=== PATIENT | female | born 1960 | race Caucasian/White ===

== ENCOUNTER 2021-09-01 13:22 | Emergency (ER) | payer OTHER ==
[2021-09-01 14:12] VITALS: BP 164/84; PULSE 72; TEMP 97.8; BMI 21.4
== END 2021-09-01 15:17 | disposition home or self-care (01) ==
LOC: FER 13:22
DX: R51.9 Headache, unspecified (principal); W19.XXXA Unspecified fall, initial encounter
CPT/HCPCS: 70450-TC; 72125-TC; 73070-TC-RT-FY; 99284-25

== ENCOUNTER 2024-05-17 15:22 | Emergency (ER) | payer OTHER ==
[2024-05-17 15:56] VITALS: RESP 16; TEMP 98.6; BMI 22.4
[2024-05-17 16:24] LABS: ALBUMIN 4.8 g/dl (3.4-5.0); BILIRUBIN,TOTAL 0.5 mg/dl (0.2-1); CALCIUM 9.9 mg/dl (8.5-10.1); CREATININE 0.8 mg/dl (0.6-1.3); TOT PROT 7.4 g/dl (6.4-8.2)
[2024-05-17 16:29] LABS: HEMATOCRIT 42.8 % (32.4-45.2); HEMOGLOBIN 14.1 G/dL (10.7-15.3); MCH 31.6 pg (25.7-33.7); MCHC 32.9 g/dl (32.0-36.0); MEAN CELL VOLUME 96.2 fl (80-96); PLATELET COUNT 274.8 10^3/uL (134-434); RBC 4.45 10^6/uL (3.60-5.2); WHITE BLOOD COUNT 7.3 10^3/uL (4.0-10.8)
[2024-05-17] MEDS: AMPICILLIN NA/SULBACTAM NA 1.5 GM in SODIUM CHLORIDE 100 ML IVPB ONE ×2 (16:30→17:15)
[2024-05-17] MEDS ORDERED: AMPICILLIN NA/SULBACTAM NA 1.5 GM VIAL ONE ×2 (16:33→17:08)
[2024-05-17 16:51] LABS: PLATELET ESTIMATE ADEQUATE
[2024-05-17 17:17] LABS: ERYTHROCYTE SEDIMENTATION RATE 21 mm/hr (0-30)
[2024-05-17] MEDS ORDERED: DIPHTH,PERTUSS(ACELL),TET 0.5 ML DISP.SYRIN IM ONE ×3 (17:45→17:54)
[2024-05-17 18:32] VITALS: BP 139/100; PULSE 90
== END 2024-05-17 18:34 | disposition short-term general hospital (02) ==
LOC: FER 15:22
DX: S61.231A Puncture wound without foreign body of left index finger without damage to nail, initial encounter (principal); M65.842 Other synovitis and tenosynovitis, left hand; W55.01XA Bitten by cat, initial encounter; Z20.822 Contact with and (suspected) exposure to COVID-19
CPT/HCPCS: 0241U-QW; 36415; 73130-TC-LT-FY; 80053; 85027; 85651; 87040; 87070; 87205; 99285-25